=== PATIENT | male | born 1985 | race African-American/Black ===

== ENCOUNTER 2020-03-16 13:57 | Emergency (ER) | payer BC ==
[2020-03-16] MEDS ORDERED: RANITIDINE75 M1 PO (15:19)
[2020-03-16 15:29] VITALS: BP 167/88
[2020-03-16] MEDS ORDERED: PROTONIX20 M1 PO (15:51)
== END 2020-03-16 15:34 | disposition home or self-care (01) | DRG 392 ==
LOC: ED 13:57
DX: R10.13 Epigastric pain (principal); F17.210 Nicotine dependence, cigarettes, uncomplicated

== ENCOUNTER 2021-11-02 22:17 | Emergency (ER) | payer OTHER ==
[~2021-11-02] VITALS: Ht 188 cm; Wt 123.0 kg
[~2021-11-02 22:17] MED LIST: PROTONIX20 M1 PO; RANITIDINE75 M1 PO
[2021-11-02 23:10] VITALS: BP 119/76
[2021-11-02 23:50] LABS: HEMATOCRIT 43.7 % (39.0-50.0); HEMOGLOBIN 14.2 g/dl (14.0-18.0); IMMATURE GRANULOCYTES 0.1 % (0.0-5.0); MEAN CELL VOLUME 93.6 fL CALC (80.0-100.0); MEAN CORPUSCULAR HGB 30.4 pG CALC (26.0-32.0); MEAN CORPUSCULAR HGB CONC 32.5 g/dL CAL (32.0-36.0); NEUT# 6.05 thou/uL (1.82-7.42); RED BLOOD COUNT 4.67 mill/uL (4.70-6.10); RED CELL DISTRI WIDTH 13.7 % (11.5-15.5)
[2021-11-03] MEDS ORDERED: TORADOL PO (00:27)
== END 2021-11-03 00:38 | disposition home or self-care (01) | DRG 866 ==
LOC: ED 22:17
PROVIDERS: Family Medicine
DX: B34.9 Viral infection, unspecified (principal); Z20.822 Contact with and (suspected) exposure to COVID-19

== ENCOUNTER 2024-08-25 07:43 | Emergency (ER) | payer OTHER ==
[~2024-08-25] VITALS: Ht 188 cm; Wt 122.4 kg
[2024-08-25] VITALS (7 sets, daily range): BP systolic 108–130; BP diastolic 69–96
[~2024-08-25 07:43] MED LIST changes: +TORADOL PO
[2024-08-25] MEDS ORDERED: DEXAMETHASONE SOD. PHOSPHATE 10 MG/ML VIAL IM ONE (08:05)
[2024-08-25] MEDS ORDERED: BENZONATATE200 MG PO (09:06)
[2024-08-25] MEDS ORDERED: MEDDOSEPAK PO (09:06)
[2024-08-25] MEDS ORDERED: ZPAK PO (09:06)
== END 2024-08-25 09:28 | disposition home or self-care (01) | DRG 203 ==
LOC: ED 07:43
DX: J20.9 Acute bronchitis, unspecified (principal); E78.5 Hyperlipidemia, unspecified; F17.210 Nicotine dependence, cigarettes, uncomplicated; Z20.822 Contact with and (suspected) exposure to COVID-19